=== PATIENT | male | born 1950 | race Caucasian/White ===

== ENCOUNTER 2016-10-16 10:19 | Emergency (ER) | payer OTHER ==
[2016-10-16] MEDS ORDERED: ACETAMINOPHEN 325 MG TAB PO ONE (10:33)
[2016-10-16] MEDS ORDERED: ACETAMINOPHEN 500 MG TAB ONE (10:33)
[2016-10-16] MEDS ORDERED: ACETAMINOPHEN 500 MG TAB PO ONE (10:40)
--- NOTE | 2016-10-16 10:48 | UCPHY ---
H & P Patient Type: New Chief Complaint Nursing Narrative: C/o nonproductive cough, runny nose, sore throat x 4 days. Unsure of fever. Time Seen by Provider: 10/16/16 10:26 HPI/ROS: CHIEF COMPLAINT: Rhinorrhea, fever, myalgias, cough HISTORY OF PRESENT ILLNESS: The patient presents to the urgent care with complaints of rhinorrhea, fever, myalgias and a nonproductive cough for the past 3 days. The patient denies significant past medical history. The patient denies abdominal pain, nausea, vomiting or diarrhea. He has no complaints of an acute rash. He denies significant headache or neck stiffness. The patient has been using some [id number] medications with minimal improvement of his symptoms. REVIEW OF SYSTEMS: A comprehensive 10 point review of systems is otherwise negative aside from elements mentioned in the history of present illness. Source: Patient Exam Limitations: No limitations - Personal History Current Tetanus Diphtheria and Acellular Pertussis (TDAP): Yes Tetanus Vaccine Date: within 10 years - Medical/Surgical History Hx Asthma: No Hx Chronic Respiratory Disease: No Hx Diabetes: No Hx Cardiac Disease: No Hx Renal Disease: No Hx Cirrhosis: No Hx Alcoholism: No Hx HIV/AIDS: No Hx Splenectomy or Spleen Trauma: No Other PMH: GERD, hyperlipidemia, L shoulder surgery - Family History Significant Family History: No pertinent family hx - Social History Smoking Status: Never smoked - Physical Exam Exam: General Appearance: Alert, no distress Eyes: Pupils equal and round no pallor or injection ENT, Mouth: Mucous membranes moist Respiratory: There are no retractions, lungs are clear to auscultation Cardiovascular: Slight tachycardia Gastrointestinal: Abdomen is soft and nontender, no masses, bowel sounds normal Neurological: A&O, normal motor function, normal sensory exam, normal cranial nerves Skin: Warm and dry, no rashes Musculoskeletal: Neck is supple nontender, no evidence of meningitis Extremities: symmetrical, full range of motion Constitutional: Initial Vital Signs Temperature (C) 38.4 C H 10/16/16 10:30 Heart Rate 105 H 10/16/16 10:30 Respiratory Rate 16 10/16/16 10:30 Blood Pressure 137/92 H 10/16/16 10:30 O2 Sat (%) 92 10/16/16 10:30 O2 Delivery Mode Room Air Allergies/Adverse Reactions: No Known Allergies Allergy (Verified 10/16/16 10:38) Home Medications: Medication Instructions Recorded Albuterol [Ventolin Hfa Inhaler] 2 puffs IH QID PRN #1 mdi 10/16/16 Hydrocodone/APAP 5/325 [White Bird 1 - 2 each PO Q6 PRN #20 tab 10/16/16 5/325] Pantoprazole Sodium 10/16/16 SIMVASTATIN 10/16/16 Medical Decision Making - Diagnostics Imaging: Chest x-ray PA lateral: Images reviewed by myself, ED Course/Re-evaluation: The patient presents to the ED with a 3-4 day history of a flu-like illness characterized by fever, cough, sore throat and myalgias. The patient was noted to have slight hypoxemia at triage however was 94% on room air the time of my evaluation. The patient has no evidence of significant respiratory distress. The patient did have some mild or pharyngeal erythema. The patient is also noted to be outside the window treatment for Tamiflu. The patient's chest x-ray demonstrates no evidence of an obvious pneumonia or pneumothorax. The patient will be given a prescription for albuterol inhaler for bronchitis. The patient has no evidence of a infiltrate requiring antibiotics.. The patient is encouraged to continue to take Tylenol and ibuprofen as needed. The patient should return to the ED or urgent care for worsening symptoms or other concerns. The patient's influenza test and strep antigen test are negative. Differential Diagnosis: Differential diagnosis considered includes influenza, community-acquired pneumonia, streptococcal pharyngitis, viral syndrome - Data Points Laboratory Results: 10/16/16 10/16/16 10/16/16 Unknown 10:40 10:35 Influenza Typ A,B (DFA) NEGATIVE FOR FLU (NEGATIVE) Group A Strep Screen NEGATIVE (NEGATIVE) Group A Strep DNA Pending Medications Given: Discontinued Medications Acetaminophen (Tylenol) 975 mg PO EDNOW ONE Stop: 10/16/16 10:34 Last Admin: 10/16/16 10:41 Dose: Not Given Acetaminophen (Tylenol) 1,000 mg PO EDNOW ONE Stop: 10/16/16 10:41 Last Admin: 10/16/16 10:41 Dose: 1,000 mg Departure - Departure Disposition: Home, Routine, Self-Care Clinical Impression: Bronchitis Condition: Good Instructions: Acute Bronchitis (ED) Additional Instructions: 1. Take Ibuprofen or Motrin 600 mg by mouth three times a day. 2. White Bird as needed for severe pain 3. Please use albuterol inhaler up to every 2 hours as needed for cough. Referrals: Gomez Weiner MD [Primary Care Provider] - As per Instructions - PQRS PQRS Measurement: Not applicable
[2016-10-16 12:11] VITALS: BP 137/92; PULSE 105; RESP 16; TEMP 101.2; O2SAT 92
== END 2016-10-16 11:46 | disposition home or self-care (01) ==
LOC: CED 10:19
DX: J40 Bronchitis, not specified as acute or chronic (principal); K21.9 Gastro-esophageal reflux disease without esophagitis; E78.5 Hyperlipidemia, unspecified
CPT/HCPCS: 71020-PO; 87400-PO; 87880-PO; 99204-PO; G0463-PO